=== PATIENT | female | born 1985 | race Caucasian/White ===

== ENCOUNTER 2025-05-01 14:58 | Outpatient (CLI) | payer MEDICAID | END 2025-05-01 14:59 | disposition home or self-care (01) | LOC: ULT 14:58 | PROVIDERS: ATTEND Urology | DX: N20.0 Calculus of kidney (principal); N28.1 Cyst of kidney, acquired; N28.9 Disorder of kidney and ureter, unspecified | CPT/HCPCS: 76770 ==